=== PATIENT | male | born 1990 | race Caucasian/White ===

== ENCOUNTER 2023-07-09 18:01 | Emergency (ER) | payer MEDICAID ==
[~2023-07-09] VITALS: Ht 182.9 cm; Wt 79.4 kg
[2023-07-09 18:08] VITALS: BP_SYST 113; PULSE 86; RESP 18; TEMP 97; O2SAT 98
[2023-07-09 18:47] LABS: BILIRUBIN,URINE NEGATIVE (NEGATIVE); CLARITY/URINE SL CLOUDY (CLEAR); COLOR,URINE YELLOW (YELLOW); GLUCOSE,URINE NEGATIVE (NEGATIVE); KETONES,URINE NEGATIVE (NEGATIVE); LEUKOCYTE ESTERASE ,URINE NEGATIVE (NEGATIVE); NITRITE, URINE NEGATIVE (NEGATIVE); PROTEIN URINE 2+ (NEGATIVE); UROBILINOGEN,URINE 0.2 (0.2-1.0)
[2023-07-09 18:49] LABS: BLOOD, URINE TRACE (NEGATIVE)
[2023-07-09 18:59] LABS: WBC,URINE 0-3 /HPF (0-3)
[2023-07-09 19:00] LABS: BACTERIA,URINE None Seen /HPF (None Seen); CALCIUM OXALATE CRYSTALS,UR F /HPF (None Seen); HYALINE CASTS, URINE 0-10 /LPF (None Seen); MUCUS,URINE None Seen /LPF (None Seen)
[2023-07-09 20:43] VITALS: BP_SYST 117; PULSE 80; RESP 16; TEMP 97.4; O2SAT 95
== END 2023-07-09 20:43 | disposition home or self-care (01) ==
LOC: SED 18:01
DX: Z00.00 Encounter for general adult medical examination without abnormal findings (principal); Z11.3 Encounter for screening for infections with a predominantly sexual mode of transmission; Z79.899 Other long term (current) drug therapy
CPT/HCPCS: 36415; 81000; 81001; 81015; 87491; 99283